=== PATIENT | female | born 1945 | race Caucasian/White ===

== ENCOUNTER 2018-06-18 19:00 | Emergency (ER) | payer MEDICARE, OTHER ==
[~2018-06-18] VITALS: Ht 172.7 cm; Wt 83.0 kg
--- NOTE | 2018-06-18 19:43 | NUR ---
Kash sherwood in ED - 06/18/18 at [address] Moura at [facility] for MSE.
--- NOTE | 2018-06-18 19:43 | NUR ---
Dr. Moura at bedside for MSE.
--- NOTE | 2018-06-18 19:50 | NUR ---
Kash sherwood in EDM - 06/18/18 at 1959 by COLBY Pt states she doesn't want to stay overnight, has a trip on Saturday. notified.
--- NOTE | 2018-06-18 19:59 | NUR ---
Patient refuses labs and possible admission for blood transfusion after consulting with the ER MD. Patient states she has a trip on saturday and will not agree to further workup/possible admission. Risks vs benefits explained to the patient. patient will sign AMA at this time.
--- NOTE | 2018-06-18 20:04 | NUR ---
Patient discharged to home in stable conditon. Written and verbal after care instructions given. Patient verbalizes understanding of instructions. Patient out of ER with steady gait, no acute signs of distress, VSS, all belongings taken, pt signed the AMA form, to follow up with primary MD tomorrow.
[2018-06-18 20:07] VITALS: BP 139/58
== END 2018-06-18 20:07 | disposition home or self-care (01) ==
LOC: ER 19:07
DX: D64.9 Anemia, unspecified (principal); I48.91 Unspecified atrial fibrillation
CPT/HCPCS: 93005; 99283; A4663